=== PATIENT | male | born 1960 | race Caucasian/White ===

== ENCOUNTER 2016-12-13 16:21 | Emergency (ER) | payer OTHER, SELFPAY ==
[~2016-12-13 16:21] MED LIST: ACTOS30 MG; ACTOS45 MG; ADULT ASPIRIN81 MG; AMARYL2 M1 PO; AMARYL2 MG PO; ANTIVERT25 MG PO; ASPIR 8181 M1 PO; ASPIR 8181 MG; ASPIR 8181 MG PO; ASPIRIN EC81 MG PO; ASPIRIN325 MG; AUGMENTIN 875-1 EAC2 PO; BACTRIM DS TAB1 EAC2 PO; BENZTROPINE MESY2 MG; BENZTROPINE MESY2 MG PO; BL MAXEPA CAPSU1 CAP; CLONAZEPAM1 MG; CLONAZEPAM1 MG PO; CRESTOR5 MG; CUBICIN500 MG/10 IV; CULTURELLE1 EAC1 PO; DEPAKOTE ER500 M1 PO; DEPAKOTE ER500 MG; DEPAKOTE ER500 MG PO; DEPAKOTE500 MG; DEPAKOTE500 MG PO; DIABETA5 MG; FLOMAX0.4 MG PO; FLUPHENAZINE HCL5 M1 PO; GEODON60 MG; GEODON80 MG; GEODON80 MG PO; GLIPIZIDE XL2.5 MG PO; GLIPIZIDE5 MG; GLIPIZIDE5 MG PO; GLUCOPHAGE1000 MG; GLYBURIDE5 MG; HYDROCHLOROTH12.5 MG; HYDROCHLOROTH12.5 MG PO; INDERAL LA80 M1 PO; INDERAL10 MG; INDERAL10 MG PO; KEFLEX500 M4 PO; LAMICTAL100 M2 PO; LEVAQUIN750 MG; LISINOPRIL10 MG; LISINOPRIL2.5 MG PO; LISINOPRIL40 MG; LISINOPRIL40 MG PO; LITHIUM CARBON300 M; LITHIUM CARBON300 MG; LITHIUM CARBON300 MG PO; LITHIUM CARBON600 MG; LOFIBRA160 MG; MACROBID 100 M100 MG PO; MELATONIN3 MG; MELATONIN5 M1 PO; MELATONIN5 M5 PO; METFORMIN HCL1000 M2 PO; METFORMIN HCL1000 MG; METFORMIN HCL1000 MG PO; METOPROLOL TART25 MG; METOPROLOL TART25 MG PO; MIRALAX17 G2 PO; NIACIN500 M1 PO; NIACIN500 MG PO; NIASPAN500 MG; NORCO 5-325 TA1 EACH PO; OMEGA 3 FISH O1 EACH PO; OMEGA 3 FISH1 CAP.EC; OMEGA 3 FISH1 CAP.EC PO; OMEGA-31000 MG; OXYCODONE/APAP PO; PERCOCET 5/3251 TAB PO; PRAVACHOL20 MG; PRAVACHOL20 MG PO; PRAVACHOL40 M1 PO; PRAVACHOL40 MG PO; PROLIXIN5 MG PO; PROPRANOLOL HCL80 M3 PO; PROTONIX40 MG; PROTONIX40 MG PO; RANITIDINE HCL150 MG; RANITIDINE HCL150 MG PO; RISPERDAL2 MG; TORADOL10 MG PO; TRICOR145 M1 PO; TRICOR145 M2 PO; TRICOR145 MG; TRIHEXYPHENIDYL2 MG; TRIHEXYPHENIDYL2 MG PO; TRIHEXYPHENIDYL5 M1 PO; TRIHEXYPHENIDYL5 MG PO; VALPROIC ACID; VITAMIN D31000 UNI2 PO; VITAMIN D31000 UNI4 PO; ZANTAC150 MG; ZANTAC150 MG PO; ZOFRAN ODT4 MG/UDTAB PO; [UNRECOGNIZED DRUG - OTHER]; [UNRECOGNIZED DRUG - OTHER]; [UNRECOGNIZED DRUG - OTHER] PO
[2016-12-13] MEDS ORDERED: B-12500 MC1 PO (16:45)
[2016-12-13] MEDS ORDERED: OMEGA-3 FLAXS1000 MG PO (16:48)
[2016-12-13 16:55] LABS: BASO % 0.4 % (0-2); EOS % 2.8 % (0-7); EOSINOPHIL ABSOLUTE COUNT 0.2 tho/cmm (0.0-0.7); HCT-HEMATOCRIT 44.1 % (36.0-53.5); HGB-HEMOGLOBIN 15.8 gm/dl (13.5-17.0); IMMATURE GRANULOCYTES ABSOLUTE 0.02 tho/cmm (0-0.03); IMMATURE GRANULOCYTES PERCENT 0.3 % (0-0.3); LYMPH % 33.5 % (20-45); LYMPH ABSOLUTE COUNT 2.5 tho/cmm (0.8-4.5); MCH (MEAN CORPUSCULAR HGB) 29.3 pg (28.0-32.0); MCHC MEAN CORPUSCULAR HGB CONC 35.8 % (32.0-36.0); MCV (MEAN CELL VOLUME) 81.7 fl (82.0-96.0); MEAN PLATELET VOLUME 10.2 cmc (9.4-12.4); MONO % 6.7 % (0-12); MONOCYTE ABSOLUTE COUNT 0.5 tho/cmm (0.0-1.2); NEUTROPHIL ABSOLUTE COUNT 4.3 tho/cmm (1.6-8.0); NEUTROPHIL-AUTOMATED 4.3 tho/cmm (1.6-8.0); NEUTROPHILS % 56.3 % (40-80); PLATELET COUNT 211 tho/cmm (150-450); RED CELL DISTRIBUTION WIDTH 12.7 % (12.4-16.4); WHITE BLOOD COUNT 7.6 tho/cmm (4.0-10.0)
[2016-12-13 17:08] LABS: ANION GAP 13 mmol/L (0-20); BLOOD UREA NITROGEN 14 mg/dl (6-24); CALCIUM 9.5 mg/dl (8.5-10.5); CARBON DIOXIDE-VENOUS 23 mmol/L (22-32); CHLORIDE 102 mmol/l (96-110); GLUCOSE 282 mg/dL (70-110); POTASSIUM 4.1 mmol/L (3.7-5.1); SODIUM 134 mmol/L (135-145); eGFR VALUE FOR BLACK >90 mL/Min
[2016-12-13 18:53] LABS: ALBUMIN 3.6 g/dl (3.5-5.0); ALKALINE PHOSPHATASE 78 U/L (33-138); ALT/SGPT 47 U/L (12-78); AST/SGOT 51 U/L (10-40); BILIRUBIN,DIRECT 0.1 mg/dl (0.0-0.3); BILIRUBIN,INDIRECT 0.4 mg/dL (0.0-1.0); BILIRUBIN,TOTAL 0.5 mg/dl (0.0-1.5)
[2017-03-07] MEDS ORDERED: BACTRIM DS TAB1 EAC2 PO (21:08)
== END 2016-12-13 20:01 ==
LOC: EDMED 16:21
PROVIDERS: Emergency Medicine
DX: S29.011A Strain of muscle and tendon of front wall of thorax, initial encounter (principal); E11.65 Type 2 diabetes mellitus with hyperglycemia; I10 Essential (primary) hypertension; E78.5 Hyperlipidemia, unspecified; K21.9 Gastro-esophageal reflux disease without esophagitis; Z90.49 Acquired absence of other specified parts of digestive tract; Z79.82 Long term (current) use of aspirin; X58.XXXA Exposure to other specified factors, initial encounter